=== PATIENT | male | born 1975 | race Caucasian/White ===

== ENCOUNTER 2023-03-19 14:37 | Outpatient (CLI) | payer OTHER, SELFPAY | END 2023-03-19 14:38 | disposition home or self-care (01) | LOC: SPT 14:38 | PROVIDERS: Family Provider Physician Assistant Medical; PCP Physician Assistant Medical; Visit Provider Orthopaedic Surgery | DX: Z46.89 Encounter for fitting and adjustment of other specified devices (principal); S52.532D Colles' fracture of left radius, subsequent encounter for closed fracture with routine healing; X58.XXXD Exposure to other specified factors, subsequent encounter | CPT/HCPCS: 97760; L3982 ==

== ENCOUNTER → 2023-04-03 10:18 | Outpatient (BNVA) | payer OTHER, SELFPAY | PROVIDERS: Family Provider Physician Assistant Medical; PCP Physician Assistant Medical; Visit Provider Nurse Practitioner Family | DX: S52.532A Colles' fracture of left radius, initial encounter for closed fracture (principal); X58.XXXA Exposure to other specified factors, initial encounter | CPT/HCPCS: 73110 ==

== ENCOUNTER → 2023-05-03 08:14 | Outpatient (BNVA) | payer OTHER, SELFPAY | PROVIDERS: Family Provider Physician Assistant Medical; PCP Physician Assistant Medical; Visit Provider Nurse Practitioner Family | DX: S52.532A Colles' fracture of left radius, initial encounter for closed fracture (principal); X58.XXXA Exposure to other specified factors, initial encounter | CPT/HCPCS: 73110 ==

== ENCOUNTER → 2023-05-09 08:51 | Outpatient (BNVA) | payer OTHER, SELFPAY | PROVIDERS: Family Provider Physician Assistant Medical; PCP Physician Assistant Medical; Visit Provider Nurse Practitioner Family | DX: E11.9 Type 2 diabetes mellitus without complications (principal); Z90.3 Acquired absence of stomach [part of]; R42 Dizziness and giddiness | CPT/HCPCS: 80053; 82607; 82746; 83036; 84439; 84443; 85025 ==

== ENCOUNTER 2024-04-30 11:17 | Emergency (ER) | payer OTHER, SELFPAY ==
--- NOTE | 2024-04-30 11:48 | ECG_ITS ---
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 Measurements Intervals [place] Rate: 69 P: 46 TX: 144 QRS: 38 QRSD: 90 T: 37 QT: 375 QTc: 404 Interpretive Statements SINUS RHYTHM No previous ECG available for comparison Electronically Signed On 04-30-2024 20:19:49 CDT by Carlos A Herndon M.D. [email or web address]
[2024-04-30 11:56] VITALS: BP 109/69; PULSE 70; TEMP 36.9; O2SAT 100; BMI 27.9
[2024-04-30 11:58] VITALS: BP 129/72; PULSE 68; RESP 16; O2SAT 99
--- NOTE | 2024-04-30 12:28 | CTR_ITS ---
PROCEDURE INFORMATION: Exam: CT Head Without Contrast Exam date and time: 04/30/2024 12:44 PM Age: 48 years old Clinical indication: Dizziness TECHNIQUE: Imaging protocol: Computed tomography of the head without contrast. Radiation optimization: All CT scans at this facility use at least one of these dose optimization techniques: automated exposure control; mA and/or kV adjustment per patient size (includes targeted exams where dose is matched to clinical indication); or iterative reconstruction. COMPARISON: No relevant prior studies available. RADIATION DOSE METRICS: Total DLP (mGy-cm): 1115.28 FINDINGS: Brain: No acute intracranial hemorrhage. No confluent lobar infarct. No mass effect. Cerebral ventricles: The ventricles and sulci are normal in size and shape for the patient's stated age. Paranasal sinuses: Opacification of a left middle ethmoid air cell. Mastoid air cells: Visualized mastoid air cells are well aerated. Bones: No acute calvarial fracture. Soft tissues: Visualized soft tissues are unremarkable. CT/CT head wo con* [id number] IMPRESSION: No acute intracranial abnormality. If symptoms persist, consider further evaluation with MRI, if MRI is clinically safe to obtain.
--- NOTE | 2024-04-30 12:31 | ED_ITS ---
HPI - Weakness 2 General: Chief complaint: Weakness Stated complaint: dizzy, weakness Time Seen by Provider: 04/30/24 12:01 History of Present Illness: Patient comes in with generalized weakness and dizziness. States that over the last week he has had off-and-on episodes of dizziness and lightheadedness. States that it feels like he is going to pass out. He states that he also feels off balance with some nausea during these episodes. States that yesterday he noticed that his stool is black. Denies any cold symptoms including no fever, cough, congestion, vomiting, or diarrhea. Denies headache. Denies chest pain, or shortness of breath. Review of Systems 2 General: Reports: 10 or more systems reviewed and unremarkable except in HPI and below PFSH ED 2 PFSH: Medical History (Updated 04/30/24 @ 14:33 by Elmer Molina MD) Hypertension Fracture, Colles, left, closed Surgical History (Updated 05/09/23 @ 08:54 by LACEY Juarez) H/O gastric sleeve Family History (Updated 05/09/23 @ 08:38 by Nicolas Landers LPN) Denies family history of Cancer Social History (Updated 05/09/23 @ 08:37 by Nicolas Landers LPN) Smoking and tobacco/nicotine status: never used tobacco/nicotine Alcohol intake: never Substance/Drug Use: never Physical Exam 2 Const: COMMON NORMALS: no acute distress, patient oriented x3, healthy appearing and alert HENMT: COMMON NORMALS: normocephalic and atraumatic HEAD & SCALP: n ormocephalic and atraumatic Eye: COMMON NORMALS: Equal, round and reactive pupils present and EOMs intact bilaterally PUPIL: Yes Equal, round and reactive pupils present Neck/C-Spine: COMMON NORMALS: full ROM and supple Resp: COMMON NORMALS: normal respiratory effort, No retractions and No use of accessory muscles Cardio: COMMON NORMALS: regular rate and regular rhythm RATE: regular rate RHYTHM: regular rhythm GI: COMMON NORMALS: Normal to inspection, nondistended, normoactive bowel sounds present, Soft to palpation and non-tender PALPATION: Yes Soft to palpation Extremity: COMMON NORMALS: normal to inspection and full ROM Neuro: COMMON NORMALS: patient oriented x3 SENSORIUM/ORIENTATION: Yes alert OTHER: NIHSS = 0 Test of skew normal Mild fatigable horizontal nystagmus with left gaze Truncal stability is normal Psych: COMMON NORMALS: mental status grossly normal and cooperative Skin: COMMON NORMALS: no rashes or lesions noted and no wounds GENERAL SKIN EXAM: no rashes or lesions noted Course 2 Vital Signs: Vital signs: Vital Signs Temperature 98.4 F 04/30/24 11:56 Pulse Rate 54 L 04/30/24 13:57 Respiratory Rate 16 04/30/24 11:58 Blood Pressure 151/84 04/30/24 13:57 Pulse Oximetry 99 04/30/24 11:58 Oxygen Delivery Me thod Room Air 04/30/24 11:58 MDM - Weakness Medical Decision Making Differential diagnosis: Anemia, ACS, viral syndrome, acute electrolyte abnormality, stroke Patient comes in with generalized weakness and dizziness. States that over the last week he has had off-and-on episodes of dizziness and lightheadedness. States that it feels like he is going to pass out. He states that he also feels off balance with some nausea during these episodes. States that yesterday he noticed that his stool is black. Denies any cold symptoms including no fever, cough, congestion, vomiting, or diarrhea. Denies headache. Denies chest pain, or shortness of breath. Physical exam is unremarkable including an NIHSS of 0. Will check labs, EKG, CT head without IV contrast, and reassess. On reassessment I talked the patient about his test results. His white blood cell count was normal at 4.49. His hemoglobin is normal at 12.4. His sodium, potassium, and creatinine are within normal limits. His CT head shows no acute intracranial abnormality. He has been asymptomatic here. We have talked about doing an MRI of his brain, however we do not have access to an MRI today. We discussed admission, but the patient does not want to be admitted and I feel like that is reasonable. He has an appointment with his primary care doctor at the beginning of the week. We discussed symptoms that should prompt immediate return to the emergency department. Will discharge home at this time with precautions to return for worsening or changing symptoms. Lab Data 04/30/24 13:03 04/30/24 13:[address] 04/30/24 12:28 IMPRESSION: No acute intracranial abnormality. If symptoms persist, consider further evaluation with MRI, if MRI is clinically safe to obtain. Laboratory Results WBC 4.49 10^3/uL (3.29-11.43) 04/30/24 13:03 RBC 3.80 10^6/uL (3.85-5.65) L 04/30/24 13:03 Hgb 12.40 g/dL (11.27-16.99) 04/30/24 13:03 Hct 35.2 % (37-53) L 04/30/24 13:03 MCV 92.6 fl (82-101) 04/30/24 13:03 MCH 32.6 pg (27-33) 04/30/24 13:03 MCHC 35.2 g/dL (30-55) 04/30/24 13:03 RDW 11.9 % (12.1-15.1) L 04/30/24 13:03 Plt Count 186 10^3/cmm (157-399) 04/30/24 13:03 MPV 10.4 fL (7.4-10.4) 04/30/24 13:03 Neut % (Auto) 52.8 % 04/30/24 13:03 Lymph % (Auto) 34.1 % 04/30/24 13:03 [place] % (Auto) 10.7 % 04/30/24 13:03 Eos % (Auto) 1.8 % 04/30/24 13:03 Baso % (Auto) 0.4 % 04/30/24 13:03 Neut # (Auto) 2.37 10^3/uL (1.8-7.7) 04/30/24 13:03 Lymph # (Auto) 1.5 10^3/uL (0.8-4.8) 04/30/24 13:03 [place] # (Auto) 0.5 10^3/uL (0.2-0.9) 04/30/24 13:03 Eos # (Auto) 0.1 10^3/uL (0.0-0.8) 04/30/24 13:03 Baso # (Auto) 0.0 10^3/uL (0.0-0.1) 04/30/24 13:03 Nucleated RBC % (auto) 0 % 04/30/24 13:03 Nucleated RBCs # 0.0 /100WBC 04/30/24 13:03 Sodium 138 mmol/L (136-145) 04/30/24 13:03 Potassium 4.4 mmol/L (3.5-5.1) 04/30/24 13:03 Chloride 103 mmol/L (98-107) 04/30/24 13:03 Carbon Dioxide 26 mmol/L (22-29) 04/30/24 13:03 Anion Gap 13.4 (5-19) 04/30/24 13:03 BUN 17 mg/dL (6-20) 04/30/24 13:03 Creatinine 1.0 mg/dL (0.7-1.2) 04/30/24 13:03 GFR Calculation 79.4 mL/min (90-130) L 04/30/24 13:03 Glucose 166 mg/dL (65-115) H 04/30/24 13:03 Calculated Osmolality 291 mOsm/kg (285-295) 04/30/24 13:03 Calcium 8.6 mg/dL (8.5-10.5) 04/30/24 13:03 Magnesium 1.6 mg/dL (1.7-2.3) L 04/30/24 13:03 Total Bilirubin 0.3 mg/dL (0.15-1.2) 04/30/24 13:03 AST 13 U/L (0-40) 04/30/24 13:03 ALT 14 U/L (0-41) 04/30/24 13:03 Alkaline Phosphatase 82 U/L (40-130) 04/30/24 13:03 Troponin T Baseline 14 ng/L (0-15) 04/30/24 13:03 Total Protein 6.1 g/dL (6.6-8.7) L 04/30/24 13:03 Albumin 3.7 g/dL (3.5-5.2) 04/30/24 13:03 Globulin 2.4 g/dL (1.3-4.6) 04/30/24 13:03 Procalcitonin 0.03 ng/mL (0-0.5) 04/30/24 13:03 All radiology interpretation(s) finalized by discharge Discharge Plan Discharge Patient Disposition: Home Clinical Impression: Dizziness, nonspecific Condition: Stable Prescriptions: No Action metformin 500 mg Tablet Extended Release 24 Hr 500 mg PO DAILY Multivitamin Patch 1 patch topical DAILY Vitamin B12 Plus Patch 1 patch topical DAILY Vitamin D3 Patch 1 patch topical DAILY Discharge Orders: Discharge ED (Routine); Ordered 04/30/24 Ordered By: Elmer Molina Referrals: Gumaro Sampson [Primary Care Provider] - Patient Instructions: Lightheadedness (ED), Dizziness (ED) Coding Level of Care Code ED Service Employee for Toñito Gerber
[2024-04-30] MEDS: sodium chloride 0.9% 1,000 ML 999 ML IV (12:34)
--- NOTE | 2024-04-30 13:04 | PC.PHAR ---
SPOUSE STATES PT TAKES METFORMIN 500MG DAILY. BOTH PHARMACIES PT HAS USED, DO NOT HAVE RECORD OF METFORMIN. CALLED TO VERIFY IF PLAIN OR ER. SPOUSE ALSO STATES PT USES THE BARIATRIC MULTIVITAMIN PATCH, B 12 PLUS PATCH AND VITAMIN D3 PATCH.
[2024-04-30 13:10] LABS: Basophils % 0.4 %; Eosinophils # 0.1 10^3/uL (0.0-0.8); Eosinophils % 1.8 %; Hematocrit 35.2 % (37-53); Lymphocytes # 1.5 10^3/uL (0.8-4.8); Lymphocytes % 34.1 %; Mean Corpuscular HGB Conc 35.2 g/dL (30-55); Mean Corpuscular Hemoglobin 32.6 pg (27-33); Mean Corpuscular Volume 92.6 fl (82-101); Mean Platelet Volume 10.4 fL (7.4-10.4); Monocytes # 0.5 10^3/uL (0.2-0.9); Monocytes % 10.7 %; Neutrophils # 2.37 10^3/uL (1.8-7.7); Neutrophils % 52.8 %; Nucleated Red Blood Cells % 0 %; Platelet Count 186 10^3/cmm (157-399); Red Cell Distribution Width 11.9 % (12.1-15.1); White Blood Count 4.49 10^3/uL (3.29-11.43)
[2024-04-30 13:29] LABS: Troponin(5th) Baseline 14 ng/L (0-15)
[2024-04-30 13:30] LABS: Alanine Aminotransferase 14 U/L (0-41); Albumin Level 3.7 g/dL (3.5-5.2); Alkaline Phosphatase 82 U/L (40-130); Anion Gap 13.4 (5-19); Aspartate Amino Transferase 13 U/L (0-40); Blood Urea Nitrogen 17 mg/dL (6-20); Calcium 8.6 mg/dL (8.5-10.5); Carbon Dioxide 26 mmol/L (22-29); Chloride 103 mmol/L (98-107); Creatinine Clr Calc Pharmacy 100.0752; Globulin 2.4 g/dL (1.3-4.6); Glomerular Filtration Rate 79.4 mL/min (90-130); Glucose 166 mg/dL (65-115); Magnesium 1.6 mg/dL (1.7-2.3); Osmolality Calculated 291 mOsm/kg (285-295); Potassium 4.4 mmol/L (3.5-5.1); Sodium 138 mmol/L (136-145); Total Bilirubin 0.3 mg/dL (0.15-1.2); Total Protein 6.1 g/dL (6.6-8.7)
[2024-04-30 13:37] LABS: Procalcitonin 0.03 ng/mL (0-0.5)
[2024-04-30 13:57] VITALS: BP 116/64; BP 150/88; BP 151/84; PULSE 54; PULSE 57; PULSE 58
[2024-04-30 14:00] VITALS: BP 148/84; PULSE 52; O2SAT 98
[2024-04-30 14:30] VITALS: BP 160/89; PULSE 58; O2SAT 97
[2024-04-30 15:05] VITALS: BP 166/92; PULSE 55; O2SAT 99
== END 2024-04-30 15:10 | disposition home or self-care (01) ==
PROVIDERS: Emergency Provider Emergency Medicine; PCP Physician Assistant Medical
DX: R42 Dizziness and giddiness (principal); Z79.84 Long term (current) use of oral hypoglycemic drugs; I10 Essential (primary) hypertension
CPT/HCPCS: 36415; 70450; 80053; 83735; 84145; 84484; 85025; 93005; 96360; 96361; 99285; J7030

== ENCOUNTER 2024-05-21 14:08 | Outpatient (CLI) | payer OTHER, SELFPAY ==
--- NOTE | 2024-05-21 14:45 | USCV_ITS ---
BaerCristo briggs Age: 49 Gender: M : 1975 Exam Date: 05/21/2024 14:17 Ordering Phys: Lala Cano Technologist: LARA Exam Location: [facility] [place] Indication: dizziness and giddiness Risk Factors: Previous Vascular Surgery: Right Brachial BP: / Left Brachial BP: / Right Left Velocity (cm/s) Spectral Plaque Velocity (cm/s) Spectral Plaque Syst/Diast Broadening Syst/Diast Broadening 190.40/15.20 Prox CCA 130.10/ 27.90 100.20/15.20 Mid CCA 110.50/ 33.20 76.50/ 19.90 Distal CCA 82.00 / 27.20 81.90/ 26.60 Prox ICA 126.00/ 43.50 100.20/38.10 Mid ICA 133.70/ 48.70 114.80/40.00 Distal ICA 85.10 / 36.10 138.50 ECA 170.60 1.50 ICA/CCA 1.60 Antegrade Vertebral Antegrade 71.80/ 23.90 cm/s 48.00/ 17.80 cm/s Bi Subclavian Tri 128.1 169.1 0 0 CONCLUSIONS Intimal thickening in the common carotid arteries and internal carotid arteries bilaterally. Right ICA stenosis <50%. Mild atheromatous plaque right carotid bulb/ICA. Left ICA stenosis 50-69%. Moderate atheromatous plaque left carotid bulb/ICA. Normal antegrade Doppler flow noted in the right vertebral artery. Normal antegrade Doppler flow noted in the left vertebral artery. Sourav Rodney MD (Electronically Signed) Final Date: 22 May 2024 16:44 S
== END 2024-05-21 14:09 | disposition home or self-care (01) ==
LOC: RAD 14:08
PROVIDERS: PCP Physician Assistant Medical; Visit Provider Nurse Practitioner Family
DX: R42 Dizziness and giddiness (principal); I65.23 Occlusion and stenosis of bilateral carotid arteries; E11.9 Type 2 diabetes mellitus without complications; R53.82 Chronic fatigue, unspecified; T14.8XXA Other injury of unspecified body region, initial encounter; W57.XXXA Bitten or stung by nonvenomous insect and other nonvenomous arthropods, initial encounter
CPT/HCPCS: 82607; 83036; 83550; 84403; 84443; 86618; 86666; 86757; 93880

== ENCOUNTER → 2024-06-10 08:19 | Outpatient (BNVA) | payer OTHER, SELFPAY | PROVIDERS: PCP Nurse Practitioner Family; Visit Provider Nurse Practitioner Family | DX: I10 Essential (primary) hypertension (principal); R42 Dizziness and giddiness | CPT/HCPCS: 80061; 83540 ==

== ENCOUNTER → 2024-08-11 08:49 | Outpatient (BNVA) | payer OTHER, SELFPAY | PROVIDERS: PCP Nurse Practitioner Family; Visit Provider Nurse Practitioner Family | DX: E11.9 Type 2 diabetes mellitus without complications (principal) | CPT/HCPCS: 83036 ==

== ENCOUNTER → 2024-12-22 09:28 | Outpatient (BNVA) | payer OTHER, SELFPAY | PROVIDERS: PCP Nurse Practitioner Family; Visit Provider Nurse Practitioner Family | DX: I10 Essential (primary) hypertension (principal); E11.9 Type 2 diabetes mellitus without complications | CPT/HCPCS: 80053; 80061; 83036 ==

== ENCOUNTER → 2025-03-25 09:38 | Outpatient (BNVA) | payer OTHER, SELFPAY | PROVIDERS: PCP Nurse Practitioner Family; Visit Provider Nurse Practitioner Family | DX: I10 Essential (primary) hypertension (principal); H61.92 Disorder of left external ear, unspecified | CPT/HCPCS: 80053; 80061; 83036 ==

== ENCOUNTER → 2025-06-29 10:03 | Outpatient (BNVA) | payer OTHER, SELFPAY | PROVIDERS: PCP Nurse Practitioner Family; Visit Provider Nurse Practitioner Family | DX: I10 Essential (primary) hypertension (principal) | CPT/HCPCS: 80053; 80061; 83036 ==

== ENCOUNTER 2025-10-23 18:29 | Emergency (ER) | payer OTHER, SELFPAY ==
[2025-10-23 18:31] VITALS: BP 187/83; PULSE 64; RESP 14; TEMP 36.4; O2SAT 97; BMI 27.5
--- OUTSIDE RECORDS SUMMARY | 2025-10-23 18:32 | XMS_ITS | Encounter Summary ---
Author Organization [facility] Address [address] [place] [address] Care Team Providers Care Tonnage Compilation Clerk Name Role Phone Stephanie Yu MD Primary Care Provider [phone] Encounter Details Date Type Department Care Team (Latest Contact Info) Description 08/11/2002 Outpatient Historical [facility] Medicine- [address] [phone] Henry Aguilar MD [address] [phone] Routine medical exam (Primary Dx) Social History Tobacco Use Types Packs/Day Years Used Date Smoking Tobacco: Never Assessed Sex and Gender Information Value Date Recorded Sex Assigned at Not on file 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
--- OUTSIDE RECORDS SUMMARY | 2025-10-23 18:32 | XMS_ITS | Encounter Summary ---
Author Organization [facility] Address [address] [place] [address] Care Team Providers Care Ice Cream Dispenser Name Role Phone Stephanie Yu MD Primary Care Provider [phone] Encounter Details Date Type Department Care Team (Latest Contact Info) Description 09/08/2002 Outpatient Historical [facility] Medicine [place] [address] [phone] Eugenio Rodrigues, DO NO ADDRESS ON FILE PERS HX EXPOS POTEN HAZ BODY FLUID (Primary Dx) Social History Tobacco Use Types Packs/Day Years Used Date Smoking Tobacco: Never Assessed Sex and Gender Information Value Date Recorded Sex Assigned at Not on file 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
--- OUTSIDE RECORDS SUMMARY | 2025-10-23 18:32 | XMS_ITS | Clinical Summary ---
Author Organization [facility] Address [address] [place] [address] Care Team Providers Care Farm Field Manager Name Role Phone Stephanie Yu MD Primary Care Provider Allergies Active Allergy Reactions Criticality Noted Date Comments Lisinopril Cough Low 09/02/2020 Medications glipiZIDE (GLUCOTROL) 5 mg tablet 1 p.o. daily for 2 weeks and then increase to twice daily thereafter 180 Tablet 3 0 Active metFORMIN (GLUCOPHAGE) 1,000 mg tabletIndications :Type 2 diabetes mellitus without complication, without long-term current use of insulin ([facility]) TAKE ONE TABLET BY MOUTH TWICE DAILY WITH MEALS 180 Tablet 3 0 Active sildenafiL, pulm.hypertension , (Revatio) 20 mg Tablet Take 2 tabs 30 min prior to activity 10 Tablet 0 Active losartan-hydroCHL OROthiazide (HYZAAR) 100-25 mg tabletIndications :Benign hypertension Take 1 Tablet by mouth daily. 90 Tablet 3 0 Active amLODIPine (NORVASC) 10 mg tabletIndications :Benign hypertension Take 1 Tablet (10 mg) by mouth daily. 90 Tablet 3 0 Active montelukast (SINGULAIR) 10 mg tablet TAKE 1 TABLET BY MOUTH ONCE DAILY AT BEDTIME 90 Tablet 1 1 Active pravastatin (PRAVACHOL) 20 mg tablet Take 1 Tablet (20 mg) by mouth daily. 90 Tablet 1 1 Active sulfacetamide (BLEPH-10) 10 % solution Administer 1 Drop in both eyes every 2 hours. 5 mL 1 Active furosemide (Lasix) 20 mg tablet Take 1 Tablet (20 mg) by mouth daily. 30 Tablet Active Active Problems Problem Noted Date Diagnosed Date Benign hypertension 09/02/2020 Type 2 diabetes mellitus 03/31/2014 Hyperlipidemia 03/31/2014 Immunizations Immunization Administration Dates Next Due (TDVAX)(7 YRS UP) TETANUS AN D DIPHTHERIA TOXOIDS, ADSORBED (2 LF OF TETANUS TOXOID AND 2 LF OF DIPHTHERIA TOXOID), 0.5ML (PF), IM 09/07/2002 Hepatitis B Vaccine 09/08/2002 Social History Tobacco Use Types Packs/Day Years Used Date Smoking Tobacco: Never Smokeless Tobacco: Never Alcohol Use Standard Drinks/Week Comments Not Asked 0 (1 standard drink = 0.6 oz pur e alcohol) Sex and Gender Information Value Date Recorded Sex Assigned at Not on file 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 Gender Identity Not on file Sexual Orientation Not on file Last Filed Vital Signs Vital Sign Reading Time Taken Comments Blood Pressure 138/74 03/13/2021 9:26 AM CDT Pulse 76 03/13/2021 9:26 AM CDT Temperature 36.1 C (97 F) 03/13/2021 9:26 AM CDT Respiratory Rate 19 03/13/2021 9:26 AM CDT Oxygen Saturation 96% 03/13/2021 9:26 AM CDT Inhaled Oxygen Concentration - - Weight 120 kg (264 lb 9.6 oz) 03/13/2021 9:26 AM CDT Height 177.8 cm (5' 10 ) 03/13/2021 9:26 AM CDT Body Mass Index 37.97 03/13/2021 9:26 AM CDT Plan of Treatment Health Maintenance Due Date Last Done Comments HEPATITIS B VACCINES (1 of 3 - 19+ 3-dose series) 1993 09/08/2002 DTAP/TDAP/TD VACCINES (1 - Tdap) 09/08/2002 09/07/20 02 COLORECTAL SCREENING 2019 Colorectal Cancer Screening 2019 FIT-DNA Q 3 years 2019 FIT/FOBT Q 1 year 2019 Flex Sig/CT Colonography Q 5 years 2019 DIABETES MICROALBUMIN ANNUAL SCREEN 06/01/2021 06/01/2020 DIABETES HBA1C Q 6 MONTHS 08/11/20212020, 11/16/2019, 03/27/2014 LDL CHOLESTEROL ANNUAL 02/09/2022 , 06/01/2020, 11/16/2019, Additional history exists DIABETES ANNUAL FOOT EXAM 02/14/20222020, 11/16/2019, 11/16/2019, Additional history exists ZOSTER VACCINE (1 of 2) 2024 DIABETES ANNUAL RETINAL EXAM 10/08/202409/2023, 10/08/2023, 08/27/2023, Additional history exists Preventative Visit- Commercial 10/28/2024 INFLUENZA VACCINE (#1) 2025 02/14/2021 Procedures Procedure Name Priority Date/Time Associated Diagnosis Comments DIABETES EYE EXAM Routine 04/25/2021 LIPID PANEL Routine 02/09/2021 MICROALBUMIN/CREATIN INE RATIO, RANDOM UR Routine 06/01/2020 8:15 AM CDT Type 2 diabetes mellitus without complication, without long-term current use of insulin ([facility]) HEMOGLOBIN A1C Routine 11/16/2019 10:07 AM PSYCHOLOGY TECH Type 2 diabetes mellitus without complication, without long-term current use of insulin ([facility]) from Last 3 Months or Most Recently Relevant to Health Maintenance Results * DIABETES EYE EXAM (04/25/2021) us Abstract Spg Provider HEALTH MAINTENANCE Final R esult * LIPID PANEL (02/09/2021) ABSTRACTED CHOLESTEROL 171 EXTERNAL LAB ABSTRACTED TRIGLYCERIDE 174 EXTERNAL LAB ABSTRACTED HDL 25 EXTERNAL LAB ABSTRACTED LDL CALCULATED 117 EXTERNAL LAB CHOLESTEROL EXTERNAL LAB TRIGLYCERIDE EXTERNAL LAB HDL EXTERNAL LAB LDL CALCULATED EXTERNAL LAB Blood 02/09/2021 Gumaro LUNA CHEMISTRY ORDERABLES Final Re sult EXTERNAL LAB * MICROALBUMIN/CREATININE RATIO, RANDOM UR (06/01/2020 8:15 AM CDT) ABSTRACTED MICROALBUMIN,URI NE 107.0 EXTERNAL LAB MICROALBUMIN, URINE EXTERNAL LAB CREATININE, URINE EXTERNAL LAB MICROALBUMIN/CRE AT RATIO, UR EXTERNAL LAB MICROALBUMIN, URINE EXTERNAL LAB CREATININE, URINE EXTERNAL LAB MICROALBUMIN/CRE AT RATIO, UR EXTERNAL LAB Urine URINE SPECIMEN OBTAINED BY CLEAN CATCH PROCEDURE / Unknown 06/01/2020 8:15 AM CDT Gumaro LUNA URINE ORDERABLES Final Result Performing Organization Address [facility]/State/ZIP Co de Phone Number EXTERNAL LAB * (ABNORMAL) HEMOGLOBIN A1C (11/16/2019 10:07 AM PSYCHOLOGY TECH) HEMOGLOBIN A1C 11.6(H) See Comment % 11/16/2019 8:39 PM PSYCHOLOGY TECH [facility] EST. AVG GLUCOSE, A1C 286 mg/dL 11/16/2019 8:39 PM PSYCHOLOGY TECH [facility] Blood Collection / Unknown 11/16/2019 10:07 AM PSYCHOLOGY TECH 11/16/2019 8:07 PM PSYCHOLOGY TECH Narrative [facility] - 11/16/2019 8:39 PM PSYCHOLOGY TECH HGB A1C INTERPRETATION NORMAL: <5.7% PRE-DIABETES: 5.7 - 6.4% DIABETES: 6.5% OR GREATER Falsely low A1C measurements can occur when: 1. Anemia and/or hemolytic anemia is present. 2. Hemoglobin variants present. 3. Renal failure. 4. Transfusion of blood product in the last 120 days. We recommend ordering a fructosamine test([id number]) to more accurately assess glycemic status if any of the above conditions are present. Gumaro LUNA CHEMISTRY ORDERABLES Final Re sult [facility] CLIA# [id number] [address] [place] [id number] from Last 3 Months or Most Recently Relevant to Health Maintenance Insurance [employer] Care Teams Farm Field Manager Relationship Specialty Start Date End Date Stephanie Yu MD [address] [phone] PCP - General Family Practice 09/04/17
--- OUTSIDE RECORDS SUMMARY | 2025-10-23 18:32 | XMS_ITS | Encounter Summary ---
Author Organization [facility] Address [address] [place] [address] Care Team Providers Care Certified Histologic Technician Name Role Phone Stephanie Yu MD Primary Care Provider [phone]- [phone] Encounter Details Date Type Department Care Team (Late st Contact Info) Description 03/27/2014 Ancillary Orders [facility] [place] [address] [place] [id number] Social History Tobacco Use Types Packs/Day Years Used Date Smoking Tobacco: Never Smokeless Tobacco: Never Alcohol Use Standard Drinks/Week Comments Not Asked 0 (1 standard drink = 0.6 oz pur e alcohol) Sex and Gender Information Value Date Recorded Sex Assigned at Not on file Legal Sex Male 3:[address] Gender Identity Not on file Sexual Orientation Not on file documented as of this encounter Plan of Treatment Not on file documented as of this encounter Procedures Procedure Name Priority Date/Time Associated Diagnosis Comments HEMOGLOBIN A1C Routine 03/27/2014 6:17 PM CDT ALT Routine 03/27/2014 11:04 AM CDT TSH Routine 03/27/2014 11:04 AM CDT PSA Routine 03/27/2014 11:04 AM CDT CREATININE Routine 03/27/2014 11:04 AM CDT LIPID PANEL Routine 03/27/2014 11:04 AM CDT CBC WITH DIFFERENTIAL Routine 03/27/2014 10:39 AM CDT documented in this encounter Results * (ABNORMAL) HEMOGLOBIN A1C (03/27/2014 6:17 PM CDT) HEMOGLOBIN A1C 10.0(H) 4.5 - 6.2 % 03/27/2014 6:17 PM CDT [facility] EST. AVG GLUCOSE, A1C 240 mg/dL 03/27/2014 6:17 PM CDT [facility] Blood 03/27/2014 9:4 3 AM CDT us External Provider Mtnv CHEMISTRY ORDERABLES Juanita l Result Performing Organization Address City/[facility]/ZIP Co de Phone Number [facility] CLIA # [id number] [address] [place] [address] * CREATININE (03/27/2014 11:04 AM CDT) CREATININE 1.10 0.60 - 1.30 mg/dL 03/27/2014 11:04 AM CDT [facility] GFR >60 >=60 mL/min/1.7 3 sq meter 03/27/2014 11:04 AM T [facility] Comment: eGFR has not been validated for use in the elderly (> 70 years of age), women, patients with serious co-morbid conditions, or persons with extremes of body size or muscle mass and should also be interpreted with caution in patients with acute kidney failure, dialysis dependent patients, patients reporting exceptional dietary intake (e.g. vegetarian diet, high protein diets, creatine supplementation), and patients with severe liver disease. Based on National Kidney Disease Education Program If patient is , please refer to the GFR result. GFR, >60 >=60 mL/min/1.7 3 sq meter 03/27/2014 11:04 AM CDT [facility] Blood 03/27/2014 9:4 3 AM CDT us External Provider Mtnv CHEMISTRY ORDERABLES Juanita l Result [facility] CLIA # [id number] [address] [place] [address] * (ABNORMAL) ALT (03/27/2014 11:04 AM CDT) Pathologist [facility] ALT 24(L) 30 - 65 U/L 03/27/2014 11:04 AM CDT [facility] Blood 03/27/2014 9:4 3 AM CDT us External Provider Mtnv CHEMISTRY ORDERABLES Juanita l Result [facility] CLIA # [id number] [address] [place] [address] * PSA (03/27/2014 11:04 AM CDT) Pathologist [facility] PSA 0.6 0.0 - 4.0 ng/mL 03/27/2014 11:04 AM CDT [facility] Blood 03/27/2014 9:4 3 AM CDT us External Provider Mtnv CHEMISTRY ORDERABLES Juanita l Result Performing Organization Address City/[facility]/ZIP Co de Phone Number [facility] CLIA # [id number] [address] [place] [address] * TSH (03/27/2014 11:04 AM CDT) Pathologist [facility] TSH 1.28 0.30 - 4.80 uIU/mL 03/27/2014 11:04 AM CDT [facility] Blood 03/27/2014 9:4 3 AM CDT us External Provider Mtnv CHEMISTRY ORDERABLES Juanita l Result [facility] CLIA # [id number] [address] [place] [address] * (ABNORMAL) LIPID PANEL (03/27/2014 11:04 AM CDT) Pathologist [facility] CHOLESTEROL 190 130 - 200 mg/dL 03/27/2014 11:04 AM [facility] TRIGLYCERIDE 298(H) 30 - 200 mg/dL 03/27/2014 11:04 AM [facility] HDL 27(L) 35 - 80 mg/dL 03/27/2014 11:04 AM [facility] LDL CALCULATED 103(H) 0 - 100 mg/dL 03/27/2014 11:04 AM [facility] Blood 03/27/2014 9:4 3 AM CDT [facility] - 03/27/2014 11:04 AM CDT TOTAL CHOLESTEROL mg/dL Desirable <200 Borderline high 200-239 High >=240 TRIGLYCERIDES mg/dL Normal <150 Borderline high 150-199 High 200-499 Very high >=500 HDL CHOLESTEROL mg/dL Low <40 Normal 40-60 Desirable >60 LDL CHOLESTEROL mg/dL Optimal <100 Low risk 100-129 Borderline high 130-159 High 160-189 Very high >=190 Based on AHA/NCEP Guidelines us External Provider Mtnv CHEMISTRY ORDERABLES Juanita l Result [facility] CLIA # [id number] [address] [place] [address] * (ABNORMAL) CBC WITH DIFFERENTIAL (03/27/2014 10:39 AM CDT) WBC 6.2 4.2 - 9.1 K/uL 03/27/2014 10:39 AM [facility] RBC 5.23 4.63 - 6.08 M/uL 03/27/2014 10:39 AM [facility] HEMOGLOBIN 17.1 13.7 - 17.5 g/dL 03/27/2014 10:39 AM [facility]EMAT[facility] 44.8 40.1 - 51.0 % 03/27/2014 10:39 AM [facility] MCV 85.7 79.0 - 92.2 fL 03/27/2014 10:39 AM [facility] [place] MCH 32.7(H) 25.7 - 32.2 pg 03/27/2014 10:39 AM CDT [facility] [place] MCHC 38.2(H) 32.3 - 36.5 g/dL 03/27/2014 10:39 AM T [facility] [place] RDW 12.0 11.0 - 14.5 % 03/27/2014 10:39 AM [facility] [place] RDW-STDEV 36.9(L) 37.0 - 54.0 fL 03/27/2014 10:39 AM CDT [facility] [place] PLATELETS 219 130 - 400 K/uL 03/27/2014 10:39 AM [facility] [place] MPV 10.6 10.0 - 14.8 fL 03/27/2014 10:39 AM CDT [facility] [place] NEUTROPHILS 61 34 - 68 % 03/27/2014 10:39 AM T [facility] [place] LYMPHOCYTES 29 22 - 53 % 03/27/2014 10:39 AM CDT [facility] [place] MONOCYTES 8 5 - 12 % 03/27/2014 10:39 AM CDT [facility] [place] EOSINOPHILS 2 1 - 7 % 03/27/2014 10:39 AM CDT [facility] [place] BASOPHILS 0 0 - 1 % 03/27/2014 10:39 AM CDT [facility] [place] NEUTROPHIL ABSOLUTE 3.78 1.78 - 5.38 K/uL 03/27/2014 10:39 AM [facility] [place] LYMPHOCYTE ABSOLUTE 1.78 1.20 - 3.40 K/uL 03/27/2014 10:39 AM CDT [facility] [place] MONOCYTE ABSOLUTE 0.49 0.30 - 0.82 K/uL 03/27/2014 10:39 AM CDT [facility] [place] EOSINOPHIL ABSOLUTE 0.09 0.04 - 0.54 K/uL 03/27/2014 10:39 AM CDT [facility] [place] BASOPHILS ABSOLUTE 0.01 0.01 - 0.08 K/uL 03/27/2014 10:39 AM [facility] [place] Blood 03/27/2014 9:4 3 AM CDT us External Provider Mtnv HEMATOLOGY ORDERABLES Fin al Result [facility] CLIA # [id number] [address] [address] documented in this encounter Visit Diagnoses Not on filedocumented in this encounter Care Teams Certified Histologic Technician Relationship Specialty Start Date End Date Stephanie Yu MD [address] [phone] PCP - General Family Practice 09/04/17 documented as of this encounter
--- OUTSIDE RECORDS SUMMARY | 2025-10-23 18:32 | XMS_ITS | Encounter Summary ---
Author Organization [facility] Address [address] [place] [address] Care Team Providers Care Real Estate Associate Name Role Phone Stephanie Yu MD Primary Care Provider [phone]- [phone] Encounter Details Date Type Department Care Team (Latest Contact Info) Description 04/08/2000 Outpatient Historical [facility] Family Medicine [address] [address] Eugenio Rodrigues, DO NO ADDRESS ON FILE Issue of medical certificates (Primary Dx) Social History Tobacco Use Types Packs/Day Years Used Date Smoking Tobacco: Never Assessed Sex and Gender Information Value Date Recorded Sex Assigned at Not on file Legal Sex Male 3:48 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
--- OUTSIDE RECORDS SUMMARY | 2025-10-23 18:32 | XMS_ITS | Encounter Summary ---
Author Organization [facility] Address [address] [place] [address] Care Team Providers Care Conference Service Coordinator Name Role Phone Stephanie Yu MD Primary Care Provider [phone]- [phone] Encounter Details Date Type Department Care Team (Latest Contact Info) Description 06/12/1999 Outpatient Historical [facility] Family Medicine [place] [address] [address] Henry Aguilar MD [address] 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
--- OUTSIDE RECORDS SUMMARY | 2025-10-23 18:32 | XMS_ITS | Clinical Summary ---
Author Organization [facility] Address [address] [place] [address] Care Team Providers Care Plumbing Mechanic Name Role Phone Stephanie Yu MD Primary Care Provider Allergies Active Allergy Reactions Criticality Noted Date Comments Amlodipine Swelling Low 10/13/2021 Lisinopril Cough Low 09/02/2020 Cqfoall-Row-Ebv Reductase Inhibitors Muscle Pain Low 10/13/2021 Medications OTHER Multivitamin patch Active metFORMIN (FORTAMET) 1,000 mg Extended Release 24 hour tablet Take 1,000 mg by mouth daily with breakfast. Active aspirin (ECOTRIN EC) 81 mg Tablet, Delayed Release (E.C.) Take 1 Tablet (81 mg) by mouth daily. 4 Active rosuvastatin (CRESTOR) 10 mg tablet Take 1 Tablet (10 mg) by mouth daily. 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 06/21/2023 Benign hypertension 09/02/2020 Type 2 diabetes mellitus 03/31/2014 Hyperlipidemia 03/31/2014 Encounters Date Type Department Care Team Description 10/12/2025 External Device Data [facility] ABSTRACTION Provider, Abstract 10/12/2025 External Device Data [facility] ABSTRACTION Provider, Abstract 09/28/2025 External Device Data [facility] ABSTRACTION Provider, Abstract from Last 3 Months Immunizations Immunization Administration Dates Next Due (ADACEL/BOOSTRIX)(10 YR UP) TDAP VACCINE, 0.5ML, IM 05/21/2022 (TDVAX)(7 YRS UP) TETANUS AN D DIPHTHERIA TOXOIDS, ADSORBED (2 LF OF TETANUS TOXOID AND 2 LF OF DIPHTHERIA TOXOID), 0.5ML (PF), IM 09/07/2002 Hepatitis B Vaccine 09/08/2002 Social History Tobacco Use Types Packs/Day Years Used Date Smoking Tobacco: Never Smokeless Tobacco: Never Tobacco Cessation:Counseling Given: Not Answered Alcohol Use Standard Drinks/Week Comments Never 0 (1 standard drink = 0.6 oz pur e alcohol) Feeling Safe Answer Date Recorded Are you in a relationship wi th someone who hurts you emotionally and/or physically? No 08/14/2023 Sex and Gender Information Value Date Recorded Sex Assigned at Not on file Legal Sex Male 12:12 PM DIRECTOR TRANSPORTATION Gender Identity Not on file Sexual Orientation Not on file Last Filed Vital Signs Vital Sign Reading Time Taken Comments Blood Pressure 138/82 06/18/2024 9:49 AM CDT Pulse 82 06/18/2024 9:49 AM CDT Temperature 36.1 C (96.9 F) 08/14/2023 9:23 AM CDT Respiratory Rate 20 03/14/2023 8:00 PM CDT Oxygen Saturation 99% 06/18/2024 9:49 AM CDT Inhaled Oxygen Concentration - - Weight 93.4 kg (206 lb) 06/18/2024 9:49 AM CDT Height 175.3 cm (5' 9 ) 06/18/2024 9:49 AM CDT Body Mass Index 30.42 06/18/2024 9:49 AM CDT Plan of Treatment Health Maintenance Due Date Last Done Comments HEPATITIS B VACCINES (1 of 3 - 19+ 3-dose series) 1993 09/08/2002 COLORECTAL SCREENING 2019 Colorectal Cancer Screening 2019 FIT-DNA Q 3 years 2019 FIT/FOBT Q 1 year 2019 Flex Sig/CT Colonography Q 5 years 2019 DIABETES MICROALBUMIN ANNUAL SCREEN 06/01/2021 06/01/2020 DIABETES HBA1C Q 6 MONTHS 08/11/20212020, 06/01/2020, 11/16/2019, Additional history exists LDL CHOLESTEROL ANNUAL 02/09/2022 , 06/01/2020, 11/16/2019, Additional history exists DIABETES ANNUAL FOOT EXAM 02/14/20222020, 11/16/2019, 07/31/2018 ZOSTER VACCINE (1 of 2) 2024 DIABETES ANNUAL RETINAL EXAM 10/08/202409/2023, 10/08/2023, 10/08/2023, Additional history exists Preventative Visit- Commercial 10/28/2024 INFLUENZA VACCINE (#1) 2025 02/14/2021 DTAP/TDAP/TD VACCINES (2 - T d or Tdap) 05/21/2032 05/21/2022, 09/07/2002 Procedures Procedure Name Priority Date/Time Associated Diagnosis Comments DIABETES EYE EXAM Routine 01/30/2022 LIPID PANEL Routine 02/09/2021 HEMOGLOBIN A1C Routine 02/09/2021 MICROALBUMIN/CREATIN INE RATIO, RANDOM UR Routine 06/01/2020 8:15 AM CDT from Last 3 Months or Most Recently Relevant to Health Maintenance Results * DIABETES EYE EXAM (01/30/2022) us Abstract Provider HEALTH MAINTENANCE Final Resul t * HEMOGLOBIN A1C (02/09/2021) ABSTRACTED HGB A1C 6.6 EXTERNAL LAB HEMOGLOBIN A1C ^ EXTERNAL LAB HEMOGLOBIN A1C EXTERNAL LAB GLUCOSE, MEAN BLOOD EXTERNAL LAB Blood 02/09/2021 Narrative EXTERNAL LAB - 02/09/2021 12:00 AM CDT This order was created through External Result Entry [facility] CHEMISTRY ORDERABLES Final Re sult EXTERNAL LAB * LIPID PANEL (02/09/2021) ABSTRACTED CHOLESTEROL 171 EXTERNAL LAB ABSTRACTED TRIGLYCERIDE 174 EXTERNAL LAB ABSTRACTED HDL 25 EXTERNAL LAB ABSTRACTED LDL CALCULATED 117 EXTERNAL LAB CHOLESTEROL ^ EXTERNAL LAB TRIGLYCERIDE ^ EXTERNAL LAB HDL ^ EXTERNAL LAB LDL CALCULATED ^ EXTERNAL LAB Blood 02/09/2021 Narrative EXTERNAL LAB - 02/09/2021 12:00 AM CDT This order was created through External Result Entry [facility]NA CHEMISTRY ORDERABLES Final Re sult Performing Organization Address City/[facility]/ZIP Co de Phone Number EXTERNAL LAB * MICROALBUMIN/CREATININE RATIO, RANDOM UR (06/01/2020 8:15 AM CDT) ABSTRACTED MICROALBUMIN,URI NE 107.0 EXTERNAL LAB MICROALBUMIN, URINE EXTERNAL LAB CREATININE, URINE EXTERNAL LAB MICROALBUMIN/CRE AT RATIO, UR EXTERNAL LAB MICROALBUMIN, URINE ^ EXTERNAL LAB CREATININE, URINE ^ EXTERNAL LAB MICROALBUMIN/CRE AT RATIO, UR ^ EXTERNAL LAB Urine URINE SPECIMEN OBTAINED BY CLEAN CATCH PROCEDURE / Unknown 06/01/2020 8:15 AM CDT [facility] URINE ORDERABLES Final Result Performing Organization Address City/[facility] Co de Phone Number EXTERNAL LAB from Last 3 Months or Most Recently Relevant to Health Maintenance Insurance YESSENIA [id number] Care Teams Plumbing Mechanic Relationship Specialty Start Date End Date Stephanie Yu MD [address] [address] [facility] - General 02/09/21
--- OUTSIDE RECORDS SUMMARY | 2025-10-23 18:32 | XMS_ITS | Encounter Summary ---
Author Organization [facility] Address [address] [place] [address] Care Team Providers Care Mechanical Engineer Name Role Phone Stephanie Yu MD Primary Care Provider [phone]- [phone] Encounter Details Date Type Department Care Team (Late st Contact Info) Description 09/08/2002 Outpatient Historical [facility] Family Medicine [place] [address] [phone] Eugenio Rodrigues, DO NO ADDRESS ON FILE Social History Tobacco Use Types Packs/Day Years Used Date Smoking Tobacco: Never Assessed Sex and Gender Information Value Date Recorded Sex Assigned at Not on file Legal Sex Male 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
--- OUTSIDE RECORDS SUMMARY | 2025-10-23 18:32 | XMS_ITS | Encounter Summary ---
Author Organization [facility] Address [address] [place] [address] Care Team Providers Care Desktop Support Manager Name Role Phone Stephanie Yu MD Primary Care Provider [phone]- [phone] Encounter Details Date Type Department Care Team (Latest Contact Info) Description 09/07/2002 Outpatient Historical [facility] Medicine [place] [address] [address] Eugenio Rodrigues, DO NO ADDRESS ON FILE PERS HX EXPOS POTEN HAZ BODY FLUID (Primary Dx); TETANUS TOXOID INOCULAT Social History Tobacco Use Types Packs/Day Years Used Date Smoking Tobacco: Never Assessed Sex and Gender Information Value Date Recorded Sex Assigned at Not on file Legal Sex Male 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
--- NOTE | 2025-10-23 20:29 | ED_ITS ---
HPI - Eye Problem General: Chief complaint: Eye Problems Stated complaint: rt eye inj Time Seen by Provider: 10/23/25 19:30 History of Present Illness: 50-year-old male was riding a horse and got up tree branch caught in his right eye. He has some irritation to the eye. Painful and sensitive to light. There is no loss consciousness his only injury was to the eye. He did apply some tetracaine at home prior to arrival. He denies any other injury. No loss of consciousness no neck pain Related Data Home Medications ?Medication ?Instructions ?Recorded ?Confirmed Multivitamin Patch 1 patch topical DAILY 06/29/25 Vitamin B12 Plus Patch 1 patch topical DAILY 06/29/25 Vitamin D3 Patch 1 patch topical DAILY 06/29/25 Previous Rx's ?Medication ?Instructions ?Recorded rosuvastatin 20 mg tablet 20 mg PO DAILY #90 tabs 11/29 03/21 metformin 500 mg tablet See Rx Instructions .Route 1 11/07/24 .COMPLEX #360 tabs diclofenac sodium 75 mg 75 mg PO Q12H PRN pain #20 t abs 10/23/25 tablet,delayed release ofloxacin 0.3 % eye drops See Rx Instructions ophthalm ic 10/23/25 (eye) .COMPLEX #10 mL Allergies Allergy/AdvReac Type Severity Reaction Status Date / Time amlodipine Allergy Mild crossed Verified 10/23/25 18:34 eyed [facility] ED [facility]: Medical History Hypertension Fracture, Colles, left, closed Surgical History H/O gastric sleeve Family History Denies family history of Cancer Social History Smoking and tobacco/nicotine status: never used tobacco/nicotine Alcohol intake: never Substance/Drug Use: never Physical Exam Const: COMMON NORMALS: no acute distress GENERAL APPEARANCE: cooperative and comfortable ORIENTATION/CONSCIOUSNESS: Yes awake, Yes oriented to person, Yes oriented to place and Yes oriented to time HENMT: COMMON NORMALS: normocephalic, atraumatic and hearing grossly normal bilaterally HEAD & SCALP: normocephalic and atraumatic Eye: OTHER: Examination of the right eye. Tetracaine dye applied. Everted the eyelids no foreign body noted no obvious gross foreign body in the sclera conjunctiva. Then fluorescein applied. Under black light exam there is a corneal abrasion from the 6 to 9 o'clock position at the periphery of the cornea. Visual acuity unchanged Resp: COMMON NORMALS: normal respiratory effort, No retractions, No use of accessory muscles and clear to auscultation bilaterally AUSCULTATION: clear to auscultation bilaterally Cardio: COMMON NORMALS: regular rate, regular rhythm and No murmurs present (Cardio) RATE: regular rate RHYTHM: regular rhythm Extremity: COMMON NORMALS: normal to inspection, capillary refill normal, no clubbing, cyanosis or edema, no calf tenderness and no pedal edema Neuro: SENSORIUM/ORIENTATION: Yes oriented to person, Yes oriented to place and Yes oriented to time Skin: COMMON NORMALS: no rashes or lesions noted GENERAL SKIN EXAM: no rashes or lesions noted Course Vital Signs: Vital signs: Vital Signs Temperature 97.3 F L 10/23/25 21:15 Pulse Rate 64 10/23/25 21:15 Respiratory Rate 19 H 10/23/25 21:15 Blood Pressure 187/95 10/23/25 21:15 Pulse Oximetry 99 10/23/25 21:15 Oxygen Delivery Me thod Room Air 10/23/25 21:15 MDM - Eye Problem Medical Decision Making Visual acuity unchanged. Significant corneal abrasion. Cyclogyl applied. Reanesthetized with tetracaine. Will discharge home with diclofenac moxifloxacin drops also gave ketorolac to use as needed topically. Advised patient to follow-up with Dr. Nunes's office tomorrow. Return if has further problems or change in vision. No radiology studies performed this visit Discharge Plan Discharge Patient Disposition: Home Clinical Impression: Corneal abrasion Condition: Stable Prescriptions: New diclofenac sodium 75 mg tablet,delayed release (DR/EC) 75 mg PO Q12H PRN (Reason: pain) Qty: 20 0RF ofloxacin 0.3 % drops See Rx Instructions .ROUTE .COMPLEX Qty: 10 0RF Rx Instructions: put 1-2 drps into affected eye(s) every 2-4 h x 2 days, then 1-2 drps 4 times/day days 3-7 No Action rosuvastatin 20 mg tablet 20 mg PO DAILY Qty: 90 1RF metformin 500 mg tablet See Rx Instructions .ROUTE .COMPLEX Qty: 360 0RF Dose Instruction: Take 2 tablets by mouth twice daily Rx Instructions: Take 2 tablets by mouth twice daily Multivitamin Patch 1 patch topical DAILY Vitamin B12 Plus Patch 1 patch topical DAILY Vitamin D3 Patch 1 patch topical DAILY Discharge Orders: Discharge ED (Routine); Ordered 10/23/25 Ordered By: Wiliam Gonsalves Referrals: [facility] [Outside] Referral Note: Call for appointment for follow-up Clinical Impression: Corneal abrasion Discharge Diet: Usual diet Discharge Activity: Resume usual activity Patient Instructions: Corneal Abrasion (ED), Opioid Safety, Pain Management, Patient Portal & Wesley Instructions Activity Restrictions/Additional Instructions: Thank you for choosing [facility] for your healthcare needs today. It is very important that you follow up as instructed or that you return to the Emergency Department should you have concerns or if your condition changes or worsens in any way. Emergency department visits are focused on emergent conditions, in some cases you may require further evaluation on an outpatient basis. He was seen the emergency room after being struck in the right eye by a branch. You do have 2 corneal abrasions in the right eye. We discharged home with diclofenac to use orally ketorolac to use topically for pain. As well as antibiotic drops. Recommend that you contact Dr. Nunes's office to follow-up with them on Saturday or Saturday of this coming week (Please note that included in your discharge packet is information concerning opioid safety and pain management. This information is given to all patients were discharged from the ER regardless of their discharge diagnosis or the medicines they usually take or are prescribed.) Print Language: Russian Coding Level of Care Code ED Document Control Supervisor for Toñito Gerber
[2025-10-23 21:15] VITALS: BP 187/95; PULSE 64; RESP 19; TEMP 36.3; O2SAT 99
== END 2025-10-23 21:38 | disposition home or self-care (01) ==
PROVIDERS: Emergency Provider Family Medicine; PCP Nurse Practitioner Family
DX: S05.01XA Injury of conjunctiva and corneal abrasion without foreign body, right eye, initial encounter (principal); Z79.84 Long term (current) use of oral hypoglycemic drugs; I10 Essential (primary) hypertension; W22.8XXA Striking against or struck by other objects, initial encounter
CPT/HCPCS: 99283; J9999